=== PATIENT | female | born 1995 | race Two or more races ===

== ENCOUNTER 2017-02-19 14:27 | Inpatient (IN) ==
[2017-02-19] MEDS ORDERED: MEPERIDINE 50 MG/1 ML VIAL IV PRN (15:07)
[2017-02-19 15:43] LABS: Basophils % 0.1 % (0.0-0.8); Eosinophils # 0.1 10*3/uL (0.0-0.87); Eosinophils % 0.7 % (0.00-10.9); Hematocrit 30.5 VOL% (35.7-47.0); Hemoglobin 10.9 GM/DL (12.0-16.0); Immature Granulocytes % 0.6 %; Immature Granulocytes Absolute 0.07 #; Lymphocytes # 2.4 10*3/uL (1.4-4.0); Lymphocytes % 19.4 % (21.3-54.2); Mean Corpuscular HGB Conc 35.7 GM/DL (32-36); Mean Corpuscular Hemoglobin 29 PG (27-34); Mean Platelet Volume 10.1 FL (9.6-12.0); Monocytes # 0.6 10*3/uL (0.11-0.8); Monocytes % 4.9 % (1.7-12.7); Neutrophils # 9.1 10*3/uL (1.4-7.4); Neutrophils % 74.3 % (38.7-73.9); Platelet Count 285 T/CUMM (130-400); Red Blood Count 3.72 MC/CUMM (3.8-5.5); Red Cell Distribution Width 12.9 % (9.3-17.3); White Blood Count 12.2 T/CUMM (4-12)
[2017-02-19 15:55] LABS: PT Patient Result 10.4 SECS; Partial Thromboplastin Time 28.2 SECS (0-40)
[2017-02-19 16:08] LABS: Alanine Aminotransferase 10 U/L (13-56); Albumin 2.8 G/DL (3.4-5.0); Alkaline Phosphatase 169 U/L (45-117); Aspartate Amino Transferase 18 U/L (0-37); Bilirubin,Total < 0.39 MG/DL (0.2-1.0); Blood Urea Nitrogen 10 MG/DL (7-18); Calcium 8.5 MG/DL (8.5-10.1); Glucose 91 MG/DL (74-106); Osmolality,Calculated 273.7 MOS/KG (273-304); Potassium 3.9 MMOL/L (3.5-5.1); Sodium 138 MMOL/L (136-145); Total Protein 6.5 G/DL (6.4-8.3); Uric Acid 5.3 MG/DL (2.6-6.0)
[2017-02-19 16:27] LABS: Hepatitis B Surface Ag Quant < 0.10 Index; Hepatitis B Surface Ag Result Negative (Negative)
[2017-02-19 16:56] LABS: HIV Antigen/Antibody Result Nonreactive (Nonreactive); Rubella Antibody IgG 5.4 IU/ML
[2017-02-19] MEDS ORDERED: LACTATED RINGERS 1,000 ML IV SCH (19:00)
--- NOTE | 2017-02-19 19:10 | OB/GYN History & Physical ---
History of Present Illness Chief complaint: Cytotec Induction History of present illness: Ms. Osorio is a 21 year old female, A1 @ 39wk gestation today. EDC 02/26/17 by 15 wk US. Pt presented to the office today for PN visit. BP was initially 140/100 then recheck was 142/94. Cx in the office ext os 3cm, int os 1c, m50%, soft, posterior and high station. Vtx presentation per US, ESTUARDO 6.74 cm. After discussing patient status with Dr Chan. Recommended pt be sent to L&D for labor induction. EFW on 02/06/17 @ 37 wks gest, 7#3oz +/-7oz. Pt has had adequate PN care. Transferred care from [place] at approx 15 wk gestation. Saw [facility], Dr Arzola @ 29 wks gestation for target US and recommendations. Medical hx including chronic HTN, no meds required, Hypothyroidism, Morbid Obesity and Positive Drug screen for THC. Family Hx sign for Brother, Duchenne's Muscular Dystrophy; Mat GGM ovarian cancer; Mat GF Brain Aneurysm Pt was on ASA 81 mg daily beginning at 14 wk gestation and stopped at 37 wk gestation. Current meds including PNV daily, Synthroid 50mcg daily, Zantac 150mg BID PN labs: O neg bld type, Rub Non-Immune, HIV neg, Hep B neg, RPR NR, GBS negative, + Chlamydia on 09/27/16 and BRITNI negative on 11/08/16. Plans to get epidural anesthesia for pain management and wants to breastfeed. Currently denies h'ache, blurred vision or dizziness. Denies LOF or vaginal bleeding. Reports fetus active. Home Medications Medication Instructions Recorded Confirmed Type Vit No.130/Iron/Folic 1 each PO DAILY 02/04/17 02/19/17 History [ Vitamins] Levothyroxine Tab [Synthroid Tab] 50 mcg PO DAILY 02/19/17 02/19/17 History Allergies Allergy/AdvReac Type Severity Reaction Status Date / Time No Known Allergies Allergy Unverified 03/06/15 15:10 Medical,Surgical,& Family Hx - Medical History Cardio: History of: Hypertension Endocrine: History of: Thyroid Disorder Musculoskeletal: No history of: Amputation Reproductive: No history of: Ectopic , Complication - Surgical History Reproductive Surgeries: Patient denies;: Section, Genitourinary Surgery - Family History Family History: Denies;: Family Anesthesia Reaction, Family Cancer, Family Diabetes, Family Heart Disease, Family Hematology, Family Hypertension, Family Psychiatric Problems, Family Stroke, Additional Family History - Social History Smoking Status: Never smoker Frequency of Alcohol Use: None Type of Drug Use: None 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 General appearance: no acute distress, morbidly obese - Antepartum / Post Antepartum Exam Cervix - Dilatation: 1cm Effacement: 50% Station: high Rupture: Intact Presentation: Vertex Heart Rate: 140, moderate variability, pos accels, no decels, Category 1 tracing [place]: Irregular UCs, palpate mild with soft resting tone - Head Head exam: Present: normal inspection - Respiratory Respiratory exam: Present: clear to auscultation bilaterally - Cardiovascular Cardiovascular exam: Present: regular rate and rhythm - GI/Abdominal GI/Abdominal exam: Present: soft (Non-tender, gravid) - Extremities Exam Extremities exam: Present: edema (Trace edema lower extrem, reflexes 2+ bilaterally) - Neurological Exam Neurological exam: Present: alert, oriented X3 - Psychiatric Psychiatric exam: Present: normal affect, normal mood - Skin Skin exam: Present: normal color, warm, dry Assessment and Plan - Time spent with patient Time spent with patient: Less than 30 minutes (1) Chronic hypertension affecting Status: Acute Assessment and plan: Cytotec induction, 50mcg vaginally initially then 25mcg q4h. Reassess in the am and possibly start Pitocin. Current Visit: Yes (2) 39 weeks gestation of Status: Acute Current Visit: Yes (3) Obesity affecting in third trimester Status: Acute Current Visit: Yes (4) Hypothyroidism affecting in third trimester Status: Acute Current Visit: Yes Results - Labs CBC & BMP: 02/19/17 15:35 02/19/17 15:35 Lab Results: I have reviewed the past 24 hour labs Quality Measures - VTE Contraindication to Pharmacological VTE Prophylaxis: Clinical assessment deems Pt at low risk, no prophalaxis needed
[2017-02-19] MEDS: LACTATED RINGERS 1,000 ML IV SCH (21:40)
[2017-02-20] MEDS: LACTATED RINGERS 1,000 ML IV SCH (02:32)
[2017-02-20] MEDS: BUTORPHANOL 2 MG/ML VIAL IV PRN ×2 (04:20→14:40)
[2017-02-20] MEDS: ONDANSETRON 4 MG/2 ML VIAL IV PRN ×2 (04:20→14:40)
--- NOTE | 2017-02-20 08:01 | OB/GYN Progress Note ---
Assessment and Plan (1) Chronic hypertension affecting Status: Acute Assessment and plan: Cytotec induction, 50mcg vaginally initially then 25mcg q4h. Reassess in the am and possibly start Pitocin. Current Visit: Yes (2) 39 weeks gestation of Status: Acute Assessment and plan: Continue current management. Dr Chan aware of pt status and in agreement with plan. If no cervical change after adequate labor, plan Section Current Visit: Yes (3) Obesity affecting in third trimester Status: Acute Current Visit: Yes (4) Hypothyroidism affecting in third trimester Status: Acute Current Visit: Yes VP ORGANIZATIONAL DEVELOPMENT - PN: Subj Interval history: 39w gest, A1, admitted on 02/19/17 for cytotec induction for elevated BP. Awake and alert. In bed with no acute distress. Denies h'ache or visual changes. No epigastric pain. Reports fetus active. Rates pain with UCs #2-3 on pain scale. Had Stadol at approx 0400 this am and this did relieve her pain. POC discussed with pt and agreed upon. Exam VP ORGANIZATIONAL DEVELOPMENT - Constitutional Vitals: Vital Signs Temp Pulse Resp BP 02/20/17 04:00 97.1 F L 59 L 18 140/90 02/20/17 00:00 97.5 F L 59 L 18 144/86 02/19/17 20:00 97.6 F 64 20 133/74 General appearance: no acute distress, morbidly obese - Antepartum / Post Antepartum Exam Cervix - Dilatation: 1-2 int os, 4cm ext os Effacement: 50 Station: high Rupture: Intact Presentation: Vertex Heart Rate: 130, moderate variability, pos accels, no decels. Category 1 tracing [place]: UCs q2-4m, 50-70sec, palpate mild to moderate with soft resting tone - Head Head exam: Present: normal inspection - Respiratory Respiratory exam: Present: clear to auscultation bilaterally - Cardiovascular Cardiovascular exam: Present: regular rate and rhythm - Extremities Exam Extremities exam: Present: edema (Trace edema lower extrem, Reflexes 2+ bilaterally, slightly brisk) - Neurological Exam Neurological exam: Present: alert, oriented X3 - Psychiatric Psychiatric exam: Present: normal affect, normal mood - Skin Skin exam: Present: normal color, warm, dry Results - Labs CBC & BMP: 02/19/17 15:35 02/19/17 15:35 Lab Results: I have reviewed the past 24 hour labs
--- NOTE | 2017-02-20 18:25 | OB/GYN Progress Note ---
Assessment and Plan - Time spent with patient Time spent with patient: Less than 30 minutes (1) Chronic hypertension affecting Status: Acute Current Visit: Yes (2) 39 weeks gestation of Status: Acute Assessment and plan: Stop Cytotec. Up to shower and up to ambulate. Regular diet for dinner. Ambien 10mg @ HS. Begin Pitocin infusion at 0500 in am per protocol. Dr Chan aware of POC and in agreement. Discussed with patient and she is also in agreement. Current Visit: Yes (3) Obesity affecting in third trimester Status: Acute Current Visit: Yes (4) Hypothyroidism affecting in third trimester Status: Acute Current Visit: Yes JAR CAPPER - PN: Subj Interval history: Tolerating contractions without distress. Rates pain with UCs #3 on 1-10 scale. Reports fetus active. Exam JAR CAPPER - Constitutional Vitals: Vital Signs Temp Pulse Resp BP 02/20/17 04:00 97.1 F L 59 L 18 140/90 02/20/17 00:00 97.5 F L 59 L 18 144/86 02/19/17 20:00 97.6 F 64 20 133/74 - Antepartum / Post Antepartum Exam Cervix - Dilatation: 4 Effacement: 70 Station: -3 Rupture: Intact Presentation: Vertex Heart Rate: 130, moderate variability, pos accels, no decels. Category 1 tracing [place]: UCs q2-4m, 60-80sec, mild to moderate by palpation with soft resting tone Results - Labs CBC & BMP: 02/19/17 15:35 02/19/17 15:35
[2017-02-20] MEDS ORDERED: ZALEPLON 5 MG CAPSULE PO ONE (21:00)
[2017-02-21] MEDS ORDERED: OXYTOCIN/LR 20 UNIT/1,000 ML BAG IV SCH (05:00)
[2017-02-21] MEDS ORDERED: CITRIC ACID/SODIUM CITRATE 30 ML UDCUP PO ONE (07:55)
[2017-02-21] MEDS ORDERED: LACTATED RINGERS 1,000 ML IV ONE (07:55)
[2017-02-21] MEDS ORDERED: fentaNYL 2 MCG/ROPIV 0.2% EPID 150 ML EPIDURAL SCH (07:55)
[2017-02-21] MEDS ORDERED: FAMOTIDINE 20 MG/2 ML VIAL IV ONE (07:55)
[2017-02-21] MEDS ORDERED: ePHEDrine 50 MG/ML AMP IV PRN (07:55)
[2017-02-21] MEDS ORDERED: diphenhydrAMINE 50 MG/1 ML VIAL IV PRN (07:55)
[2017-02-21] MEDS ORDERED: PROMETHAZINE 25 MG/1 ML VIAL IM ONE (07:55)
[2017-02-21] MEDS ORDERED: hydrOXYzine HCL 25 MG/1 ML VIAL IM PRN (07:55)
[2017-02-21] MEDS ORDERED: LIDOCAINE 100 MG/5 ML SYRINGE ONE (08:23)
[2017-02-21] MEDS ORDERED: ONDANSETRON 4 MG/2 ML VIAL ONE (08:23)
[2017-02-21 10:24] LABS: Apearance,Urine CLEAR (Clear); Bilirubin,Urine Negative (Negative); Blood, Urine Negative (Negative); Glucose,Urine (UA) Negative (Negative); Ketones,Urine 5 mg/dL (Negative); Mucus,Urine Occasional /LPF (Occasional); Nitrite,Urine Negative (Negative); Protein,Urine Negative; Squamous Epithelial Cell,Urine Occasional /HPF (0-10); Urine Color Yellow (Yellow); Urine Specific Gravity 1.017 (1.001-1.035); Urine Urobilinogen < 2.0 EU/DL (0.2-1.0); WBC,Urine 1 /HPF (0-6)
[2017-02-21] MEDS ORDERED: miSOPROStol 200 MCG TABLET ONE ×2 (16:15→16:16)
[2017-02-21] MEDS ORDERED: SODIUM CHLORIDE 0.9% 100 ML IV ONE (18:14)
--- NOTE | 2017-02-21 18:23 | OB/GYN Progress Note ---
Assessment and Plan - Time spent with patient Time spent with patient: Less than 30 minutes (1) Chronic hypertension affecting Status: Acute Assessment and plan: Continue Pitocin induction per protocol. Dr Chan aware of pt status and in agreement with POC. Current Visit: Yes (2) 39 weeks gestation of Status: Acute Current Visit: Yes (3) Obesity affecting in third trimester Status: Acute Current Visit: Yes (4) Hypothyroidism affecting in third trimester Status: Acute Current Visit: Yes BEATER HEAD - PN: Subj Interval history: SROM at 0745 this am with clear fluid seen. Pt requested epidural and anesthesia was consulted. She currently has an epidural and is comfortable. Denies h'ache or visual changes. Reports fetus active. Family members at bedside. Exam BEATER HEAD - Constitutional Vitals: Vital Signs Temp Pulse Resp BP 02/21/17 10:45 97.1 F L 02/21/17 08:00 97.1 F L 02/21/17 04:00 97.6 F 52 L 18 135/82 02/21/17 00:00 51 L 18 128/76 02/20/17 20:00 98.3 F 59 L 18 134/72 General appearance: no acute distress, morbidly obese - Antepartum / Post Antepartum Exam Cervix - Dilatation: 5 Effacement: 70% Station: -3 Rupture: SROM Presentation: Vertex Heart Rate: 140, variable decels, min-mod variability, Category 2 tracing [place]: 1 1/2-4min, 60-70 sec, moderate by palpation with soft resting tone - Extremities Exam Extremities exam: Present: edema (1+ lower extrem) - Neurological Exam Neurological exam: Present: alert, oriented X3 - Psychiatric Psychiatric exam: Present: normal affect, normal mood - Skin Skin exam: Present: normal color, warm, dry Results - Labs CBC & BMP: 02/19/17 15:35 02/19/17 15:35
--- NOTE | 2017-02-21 18:28 | OB/GYN Progress Note ---
Assessment and Plan (1) Chronic hypertension affecting Status: Acute Assessment and plan: Continue Pitocin induction per protocol. Dr Chan aware of pt status and in agreement with POC. Current Visit: Yes (2) 39 weeks gestation of Status: Acute Assessment and plan: Stop Cytotec. Up to shower and up to ambulate. Regular diet for dinner. Ambien 10mg @ HS. Begin Pitocin infusion at 0500 in am per protocol. Dr Chan aware of POC and in agreement. Discussed with patient and she is also in agreement. 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 Denies complaints. BP stable at this time. Exam COMPUTER NETWORK SUPPORT SPECIALIST - Constitutional Vitals: Vital Signs Temp Pulse Resp BP 02/21/17 10:45 97.1 F L 02/21/17 08:00 97.1 F L 02/21/17 04:00 97.6 F 52 L 18 135/82 02/21/17 00:00 51 L 18 128/76 02/20/17 20:00 98.3 F 59 L 18 134/72 - Antepartum / Post Antepartum Exam Cervix - Dilatation: 6 Effacement: 80 Station: -2 Rupture: SROM Presentation: Vertex Heart Rate: 130, mod variability, pos accels, Category 1 tracing [place]: IUPC inserted without difficulty at 6 o'clock position - Psychiatric Psychiatric exam: Present: normal affect, normal mood - Skin Skin exam: Present: normal color, warm, dry Results - Labs CBC & BMP: 02/19/17 15:35 02/19/17 15:35
--- NOTE | 2017-02-21 18:32 | OB/GYN Progress Note ---
Assessment and Plan - Time spent with patient Time spent with patient: Less than 30 minutes (1) Chronic hypertension affecting Status: Acute Assessment and plan: Section for arrest of dilatation and descent. Current Visit: Yes (2) 39 weeks gestation of Status: Acute Current Visit: Yes (3) Obesity affecting in third trimester Status: Acute Current Visit: Yes (4) Hypothyroidism affecting in third trimester Status: Acute Current Visit: Yes NEONATAL SURGEON - PN: Subj Interval history: In bed in high fowlers position. Denies c/o pain. Epidural in place Exam NEONATAL SURGEON - Constitutional Vitals: Vital Signs Temp Pulse Resp BP 02/21/17 10:45 97.1 F L 02/21/17 08:00 97.1 F L 02/21/17 04:00 97.6 F 52 L 18 135/82 02/21/17 00:00 51 L 18 128/76 02/20/17 20:00 98.3 F 59 L 18 134/72 - Antepartum / Post Antepartum Exam Cervix - Dilatation: 6-7 Effacement: 80 Station: -2, caput Rupture: SROM Presentation: Vertex Heart Rate: 135, mod variability, pos accels, Category 1 tracing [place]: IUPC Q3-4m 60-80sec, 70-80mm Hg with 20mm resting tone - Psychiatric Psychiatric exam: Present: normal affect, normal mood - Skin Skin exam: Present: normal color, warm, dry Results - Labs CBC & BMP: 02/19/17 15:35 02/19/17 15:35
[2017-02-21] MEDS ORDERED: IBUPROFEN 800 MG TABLET PO PRN (19:40)
[2017-02-21] MEDS ORDERED: OXYTOCIN/LR 20 UNIT/1,000 ML BAG IV ONE (19:40)
[2017-02-21] MEDS ORDERED: RHO(D) IMMUNE GLOBULIN 300 MCG SYRINGE IM ONE (19:40)
[2017-02-21] MEDS ORDERED: ONDANSETRON 4 MG/2 ML VIAL IV PRN (19:40)
[2017-02-21] MEDS ORDERED: ACETAMINOPHEN 325 MG TABLET PO PRN (19:40)
--- NOTE | 2017-02-21 19:58 | Anesthesia Post-Op ---
Anesthesia Post OP - Post Ansesthetic Evaluation Patient seen in post op: Yes Resp: within normal limits CV: within normal limits Mental: within normal limits Temp: within normal limits [id number]: within normal limits Nausea and Vomiting: within normal limits Pain: within normal limits
[2017-02-21] MEDS ORDERED: LACTATED RINGERS 1,000 ML IV SCH (20:00)
[2017-02-21] MEDS ORDERED: MORPHINE 10 MG/10 ML VIAL ONE (20:05)
--- NOTE | 2017-02-21 20:11 | Operative Note ---
Date of procedure: 02/21/17 Pre-op diagnosis: 1.39wks;2.failed induction;3.chronic HTN;4.obesity Post-op diagnosis: same Procedure: Primary low transverse section After informed consent was obtained the patient was taken to the labor and delivery OR where she was placed in supine position with left lateral tilt. After assuring adequacy of the epidural block by members of the anesthesia department the patient was then sterilely prepped and draped in the usual customary fashion. A Martinez catheter was placed to bedside drainage. After assuring adequacy of the subarachnoid block a low transverse skin incision was made. Incision was carried through the subcutaneous tissue and Kiya's fascia to the anterior rectus fascia. Rectus muscles are bifurcated in the midline. Peritoneum was carefully entered. A bladder flap was created. The bladder blade was place in the bladder flap. A low transverse myotomy incision was then performed. Uterine cavity was entered with careful dissection. The infant was found in the cephalic presentation and delivered by the usual cephalic delivery technique without difficulty. The baby was bulb suctioned on the operative field. The cord was doubly clamped and cut. The infant was handed to personnel in attendance. Cord blood was collected. The placenta was manually extracted and sent to pathology for evaluation. The uterus is brought out of the abdominal cavity onto the abdominal wall. Uterine cavity was gently curetted with a moistened lap sponge. The cervix was noted to be dilated. Myotomy incision was repaired with a running interlocking stitch of 0 chromic suture from left to right and from right to left. After assuring adequate myotomy closure the adnexa were inspected and found to be without evidence pathology. The abdominal gutters were irrigated with normal saline. Uterus was carefully replaced into the abdominal cavity. The myometrium incision was again inspected. It was found to be hemostatic. Peritoneum was closed with a running stitch of 3-0 Vicryl. Rectus muscles were noted be hemostatic. The fascia was closed in running fashion from left right and from right to left with 0 Vicryl suture. The sutures tied securely at the midline. Adequate fascial closure was assured. Kiya's fascia was reapproximated with a running stitch of 3-0 Vicryl. Skin edges were reapproximated with surgical surgical steel [place]. The wound was sterilely cleansed and dressed in the usual and customary fashion. Patient tolerated the procedure well and was transferred to recovery in stable condition. Anesthesia: epidural Surgeon / Physician: Damari Chan Customs Consultant: Carlita Kaur Estimated blood loss: other (600cc) Specimens: other (placenta to path; cord blood to lab) Condition: stable Disposition: other (L&D room) Results - Labs CBC & BMP: 02/19/17 15:35 02/19/17 15:35 Discharge Plan - Discharge Medications No Action Vit No.130/Iron/Folic [ Vitamins] 1 each PO DAILY Levothyroxine Tab [Synthroid Tab] 50 mcg PO DAILY - Follow Up or Referral - Forms/Instructions
[2017-02-21] MEDS: oxyCODONE/ACETAMINOPHEN 5-325 MG TABLET PO PRN (23:30)
[2017-02-22] MEDS: DOCUSATE SODIUM 100 MG CAPSULE PO SCH ×3 (00:19→20:10)
[2017-02-22 05:56] LABS: Basophils % 0.2 % (0.0-0.8); Eosinophils # 0.1 10*3/uL (0.0-0.87); Eosinophils % 0.4 % (0.00-10.9); Hematocrit 26.2 VOL% (35.7-47.0); Hemoglobin 9.2 GM/DL (12.0-16.0); Immature Granulocytes % 0.5 %; Immature Granulocytes Absolute 0.06 #; Lymphocytes # 2.5 10*3/uL (1.4-4.0); Lymphocytes % 19.2 % (21.3-54.2); Mean Corpuscular HGB Conc 35.1 GM/DL (32-36); Mean Corpuscular Hemoglobin 29 PG (27-34); Mean Corpuscular Volume 82.6 FL (87-102); Monocytes # 0.8 10*3/uL (0.11-0.8); Monocytes % 6.1 % (1.7-12.7); Neutrophils # 9.6 10*3/uL (1.4-7.4); Neutrophils % 73.6 % (38.7-73.9); Platelet Count 212 T/CUMM (130-400); Red Blood Count 3.17 MC/CUMM (3.8-5.5); White Blood Count 13.1 T/CUMM (4-12)
[2017-02-22] MEDS: oxyCODONE/ACETAMINOPHEN 5-325 MG TABLET PO PRN ×3 (09:00→20:10)
[2017-02-22] MEDS ORDERED: RHO(D) IMMUNE GLOBULIN 300 MCG SYRINGE IM SCH (09:00)
[2017-02-22] MEDS: MULTIVITAMIN (PRENATAL) TABLET PO SCH (09:08)
--- NOTE | 2017-02-22 10:25 | OB/GYN Progress Note ---
Assessment and Plan - Time spent with patient Time spent with patient: Less than 30 minutes (1) Chronic hypertension affecting Status: Acute Assessment and plan: Section for arrest of dilatation and descent. Current Visit: Yes (2) 39 weeks gestation of Status: Resolved Assessment and plan: Stop Cytotec. Up to shower and up to ambulate. Regular diet for dinner. Ambien 10mg @ HS. Begin Pitocin infusion at 0500 in am per protocol. Dr Chan aware of POC and in agreement. Discussed with patient and she is also in agreement. Current Visit: Yes (3) Obesity affecting in third trimester Status: Acute Current Visit: Yes (4) Hypothyroidism affecting in third trimester Status: Acute Current Visit: Yes (5) Delivered by section Status: Acute Assessment and plan: Routine post Care. Current Visit: Yes CORPORATE DEVELOPMENT INTERN - PN: Subj Interval history: In bed, awake and alert. Denies c/o pain at this time. Reports she has not been up yet. Denies h'ache or visual changes. Exam CORPORATE DEVELOPMENT INTERN - Constitutional Vitals: Vital Signs Temp Pulse Resp BP Pulse Ox 02/22/17 04:00 98.4 F 102 H 20 120/84 99 02/22/17 02:00 18 02/22/17 00:32 98.6 F 82 18 142/82 99 02/21/17 23:30 98.1 F 71 18 147/75 99 02/21/17 22:45 98.0 F 82 20 142/72 99 02/21/17 22:25 98.1 F 62 18 135/78 99 02/21/17 22:15 98.1 F 61 18 133/75 98 02/21/17 21:45 99.2 F 63 18 125/74 98 02/21/17 10:45 97.1 F L General appearance: morbidly obese - Respiratory Respiratory exam: Present: clear to auscultation bilaterally - Breast Menstruation: other (Small amount lochia rubra) - GI/Abdominal GI/Abdominal exam: Present: hypoactive bowel sounds - Extremities Exam Extremities exam: Present: normal inspection, edema (1-2+ edema lower extrem. ) - Neurological Exam Neurological exam: Present: alert, oriented X3 - Psychiatric Psychiatric exam: Present: normal affect, normal mood - Skin Skin exam: Present: normal color, warm, dry Results - Labs CBC & BMP: 02/22/17 05:26 02/19/17 15:35 Lab Results: I have reviewed the past 24 hour labs
[2017-02-22] MEDS: SIMETHICONE CHEW 80 MG TABLET PO PRN (20:10)
[2017-02-22] MEDS: MAGNESIUM HYDROXIDE SUSP 30 ML UDCUP PO PRN (20:10)
[2017-02-22] MEDS: FERROUS SULFATE 325 MG TABLET PO SCH (20:10)
[2017-02-23] MEDS: oxyCODONE/ACETAMINOPHEN 5-325 MG TABLET PO PRN ×5 (01:30→20:38)
[2017-02-23] MEDS: SIMETHICONE CHEW 80 MG TABLET PO PRN ×2 (06:50→20:38)
[2017-02-23] MEDS: MAGNESIUM HYDROXIDE SUSP 30 ML UDCUP PO PRN ×2 (06:50→20:38)
[2017-02-23] MEDS: DOCUSATE SODIUM 100 MG CAPSULE PO SCH ×2 (09:01→20:38)
[2017-02-23] MEDS: MULTIVITAMIN (PRENATAL) TABLET PO SCH (09:01)
[2017-02-23] MEDS: FERROUS SULFATE 325 MG TABLET PO SCH ×2 (09:01→20:38)
--- NOTE | 2017-02-23 10:33 | OB/GYN Progress Note ---
LINE PATROLMAN - PN: Subj Interval history: Patient is doing well. She is tolerating her diet. She is alert and oriented -3 Cardiovascular regular rate and rhythm Lungs clear to auscultation Abdomen soft with appropriate tenderness and bowel sounds are present and her incision is dry no bleeding Is good refill HEENT shows pink conjunctiva assessment postop day #2 doing well Plan continue present management with expected DC in a.m. Exam LINE PATROLMAN - Constitutional Vitals: Vital Signs Temp Pulse Resp BP Pulse Ox 02/23/17 09:47 20 02/23/17 08:00 98.0 F 81 20 115/63 97 02/23/17 04:15 98.3 F 78 20 129/52 96 02/23/17 00:05 98.4 F 92 H 20 137/74 97 02/22/17 22:20 20 02/22/17 20:05 98.3 F 78 20 138/81 99 02/22/17 16:00 97.8 F 85 18 129/73 02/22/17 12:00 97.7 F 100 H 18 132/73 Results - Labs CBC & BMP: 02/22/17 05:26 02/19/17 15:35
[2017-02-24] MEDS: oxyCODONE/ACETAMINOPHEN 5-325 MG TABLET PO PRN ×2 (01:10→06:55)
[2017-02-24 08:31] VITALS: BP 139/81
[2017-02-24] MEDS: MULTIVITAMIN (PRENATAL) TABLET PO SCH (09:07)
[2017-02-24] MEDS: DOCUSATE SODIUM 100 MG CAPSULE PO SCH (09:07)
[2017-02-24] MEDS: MAGNESIUM HYDROXIDE SUSP 30 ML UDCUP PO PRN (09:07)
[2017-02-24] MEDS: SIMETHICONE CHEW 80 MG TABLET PO PRN (09:07)
[2017-02-24] MEDS ORDERED: DIPH/TET/ACEL PERT BOOSTER VACCINE 0.5 ML VIAL IM ONE (10:21)
[2017-02-24] MEDS ORDERED: MEASLES/MUMPS/RUBELLA VACCINE 0.5 ML VIAL SUBCUT ONE (10:56)
--- NOTE | 2017-02-25 12:19 | Pathology Report from [facility] ---
[facility] ACCESSION # : [id number] PATIENT NAME : Tanvir Andre ORDERING DR : FABIAN MCGARRY CLINICAL HX: IUP @ 39.2 wks gestation, chronic HTN, morbid obesity POST-OP DX: Same SPECIMEN INFO: Placenta GROSS DESCRIPTION: Received fresh labeled TANVIR ANDRE is a 452 gm placenta measuring 18.6 x 16.1 x up to 2.7 cm. The membranes are pink [place] and slightly opaque. The umbilical cord is eccentrically inserted, contains three vessels and measures 43.2 cm in length. The surface is dark blue pink lees. The maternal surface is hemorrhagic with mildly disrupted cotyledons and multiple scattered areas of fibrin and calcification present with adherent clotted blood. Sectioning reveals no gross abnormalities. Sections submitted A- membranes and cord, B- and maternal surfaces. DIAGNOSIS FOR TANVIR ANDRE: PLACENTA, MEMBRANES, UMBILICAL CORD: Focal placental infarction with dystrophic calcification, moderate intervillous blood. Tri-vessel umbilical cord, eccentrically inserted. Membranes with focal chronic inflammation and attached blood. COLLECTED DATE: 02/22/2017 [facility] REPORT DATE: 02/25/2017 ELECTRONICALLY SIGNED BY: Fredy Castro M.D. 02/25/2017 - 10:32:48 SALTY
== END 2017-02-24 15:47 | disposition home or self-care (01) | DRG 540 ==
LOC: N.LD 14:27 → N.LDOUT 14:27 → N.LD 15:03 → N.OB 02-21 21:45
PROVIDERS: ADMIT Obstetrics & Gynecology; ATTEND Obstetrics & Gynecology
PROC: LDCSECT (ICD-10-PCS; 2017-02-21 18:20)